=== PATIENT | female | born 1970 | race Caucasian/White ===

== ENCOUNTER 2024-11-24 07:28 | Emergency (ER) | payer OTHER, SELFPAY ==
[2024-11-24 07:31] VITALS: BP 169/92
[2024-11-24 08:23] LABS: % Basophils 0.5 % (0-2); % Eosinophils 2.4 % (0-6); % Immature Granulocytes 0.2 % (0-0.5); % Lymphocytes 13.8 % (20.5-51.1); % Monocytes 7.4 % (1.7-9.3); % Neutrophils 75.7 % (42.2-75.2); Absolute Eosinophils 0.2 10^3/uL (0-0.7); Absolute Lymphocytes 1.2 10^3/uL (1.2-3.4); Absolute Monocytes 0.6 10^3/uL (0.1-0.6); Absolute Neutrophils 6.6 10^3/uL (1.4-6.5); Hematocrit 39.7 % (37.0-47.0); Hemoglobin 13.4 g/dL (12.0-16.0); Mean Corp Hgb Conc. 33.8 g/dL (33.0-37.0); Mean Corpuscular Hgb 29.8 pg (27.0-31.0); Mean Corpuscular Volume 88.4 fL (81.0-99.0); Nucleated Red Blood Cells % 0 %; Red Blood Cell Count 4.49 10^6/uL (4.20-5.40); White Blood Cell Count 8.7 10^3/uL (4.8-10.8)
[2024-11-24 08:31] LABS: ALT (SGPT) 14 U/L (0-35); AST (SGOT) 20 U/L (14-36); Albumin 4.1 g/dl (3.5-5.0); Alkaline Phosphatase 60 U/L (38-126); Blood Urea Nitrogen 17 mg/dl (7-17); Calcium 10.5 mg/dl (8.4-10.2); Carbon Dioxide 26 mmol/L (22-30); Chloride 108 mmol/L (98-107); Glucose 104 mg/dl (70-99); Lipase 52 U/L (23-300); Potassium 4.5 mmol/L (3.5-5.1); Sodium 142 mmol/L (135-145); Total Bilirubin 0.4 mg/dl (0.2-1.3); Total Protein 6.9 g/dl (6.3-8.2); eGFR > 60.00
--- NOTE | 2024-11-24 08:42 | ED.GENMED ---
History of Present Illness
General
Chief Complaint: Abdominal Pain
Source: patient
Exam Limitations: none
Time Seen by Provider: 11/24/24 08:25
History of Present Illness
History of Present Illness:
53yoF with a history of a torn hip labrum currently on meloxicam and gabapentin presenting with her for evaluation of abdominal pain. Symptoms initially began about a month ago. She reports the pain in her epigastric region. It initially
felt like something exploded in her stomach. This was followed by salivation and nausea. She did not have this pain again up until 2 days ago. She has had 3 separate episodes of pain in the last few days with the last episode being this morning.
The pain is always located in her epigastric region and it feels like something pops. Throughout the past month, she has been experiencing bloating in her upper abdomen after eating or drinking anything. She also reports belching and constipation.
She takes milk of magnesia as needed. She denies any chest pain, fevers, diarrhea, dysuria. Previous abdominal surgeries include an appendectomy, oophorectomy, and tummy tuck.
Past History
Past History
ED Past Medical History: None
ED Past Surgical History: Gynecological (bilateral oophorectomy) and Other (breast reduction, tummy tuck, bilateral ear prosthetic hammer bones)
Social History
Tobacco: Smoker (occasionally)
Alcohol: Occasional
Personal:
Living: with family
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
Phy Exam
Physical Exam
Physical Exam:
Appears uncomfortable, non-toxic
General Physical Exam
General Presentation: well appearing
General age: appears stated age
General Skin: warm and dry
General Habitus: normal
General Mental: alert
ENT Exam
ENT Exam: normocephalic
Cardiovascular Exam
Cardiovascular Exam: regular rate/rhythm and no murmur
Pulmonary Exam
Pulmonary Exam: lungs clear, no respiratory distress, no rales, no crackles and no rhonchi
Gastrointestinal Exam
Gastrointestinal Exam: soft and other (+Tenderness in RUQ, epigastric, and LUQ regions. Upper abdomen mildly distended. No rebound or guarding. )
Neurological Exam
Neurological Exam: alert
Gagan Coma Scale
Eye Opening: Spontaneous
Verbal Response: Oriented
Motor Response: Obeys Commands
GCS Total Score: 15
Skin Exam
Skin Exam: normal color and warm/dry
Psychiatric Exam
Psychiatric Exam: normal mood/affect
Course
Orders/Labs/Results
Orders:
Orders
11/24/24 07:35
Electrocardiogram (*1) Urgent
Reason for Study: Abdominal Pain
EKG- Treatment ONCE
11/24/24 07:50
Complete Blood Count/With Diff Urgent
Comprehensive Metabolic Panel Urgent
Lipase Urgent
11/24/24 08:41
CT Abd/pel W Iv And Oral Contr Urgent
Comment:
Reason For Exam: upper abdominal pain
0.9% Sodium Chloride 1000 ml [Nss] 1,000 ml IV BOLUS
Famotidine [Pepcid] 20 mg IV NOW STA
Iohexol [Omnipaque] See Protocol PO NOW STA
Morphine Sulfate 4 mg IV NOW STA
Ondansetron Injectable [Zofran] 4 mg IV NOW STA
11/24/24 09:23
Troponin I Urgent
Abnormal Lab Results
11/24/24
07:50
MPV 10.7 H fL
(7.4-10.4)
Absolute Neuts (auto) 6.6 H 10^3/uL
(1.4-6.5)
Neutrophils % 75.7 H %
(42.2-75.2)
Lymphocytes % 13.8 L %
(20.5-51.1)
Chloride 108 H mmol/L
(98-107)
Glucose 104 H mg/dl
(70-99)
Calcium 10.5 H mg/dl
(8.4-10.2)
11/24/24 07:50
11/24/24 07:50
Vital Signs
Initial and Last Documented VS:
Initial Vital Signs
Temp Pulse Resp BP Pulse Ox
98.4 F 94 16 169/92 98
11/24/24 07:31 11/24/24 07:31 11/24/24 07:31 11/24/24 07:31 11/24/24 07:31
Last Documented Vital Signs
Temp Pulse Resp BP Pulse Ox
98.4 F 55 18 110/77 98
11/24/24 07:31 11/24/24 11:10 11/24/24 11:10 11/24/24 11:10 11/24/24 11:10
MDM/Problems Addressed
Differential Diagnosis Includes:
53yoF here with upper abd pain, bloating, and belching. Had an episode 1 month ago and symptoms recurred 2 days ago. +Intermittent vomiting. She is mildly hypertensive with otherwise normal vitals. She is non-toxic appearing. No signs of peritonitis
on abdominal exam. Differential diagnosis includes but is not limited to: gastritis, PUD, biliary colic, SBO, malignancy
Initial ED plan: Check abdominal labs, troponin/EKG, and CT abdomen with IV/PO contrast. IV Zofran, Pepcid, morphine, and fluid bolus for symptoms.
*EKG
Interpreted by ED Provider?: Yes
EKG Intrepretation Date: 11/24/24
Heart Rate: 77
Rate: normal
Rhythm: sinus
Brothers: normal axis
Interval: normal interval
QRS Pattern: poor R-wave progression
Ischemia: no ischemia
*Critical Care Note
Total Time (30-74mins, 75-104mins- exclusive of procedures): Not Applicable
Update Note
Update Note:
Labs overall unremarkable including normal white count, lipase, renal function, and LFTs. EKG shows normal sinus rhythm without ischemic changes and troponin within normal limits. CT abdomen is negative for acute findings. There is fatty atrophy
of the pancreas but no pancreatic mass. Unclear etiology of symptoms. Consider peptic ulcer disease given report of postprandial pain. Prescriptions provided for Protonix, Carafate, and Zofran. Advised follow-up with PCP and GI. ED return
precautions discussed. Patient in agreement with plan and was discharged in stable condition.
ED Attending Note
-
Portions of this chart may have been created with voice recognition software.� Occasional wrong word or��sound alike� substitutions may have occurred due to the inherent limitations of voice recognition software.
Discharge Plan
Departure
Patient Disposition: Home (Routine Discharge)
Date of Disposition: 11/24/24
Time of Disposition: 12:53
Patient with high blood pressure during this ER visit?: No
Discharge Problem:
Epigastric pain, Nausea and vomiting
Instructions: Abdominal Pain
Prescriptions:
New
pantoprazole [Protonix] 40 mg tablet,delayed release (DR/EC)
40 mg PO DAILY Qty: 30 0RF
sucralfate [Carafate] 100 mg/mL suspension
10 ml PO ACHS Qty: 400 0RF
ondansetron 4 mg tablet,disintegrating
4 mg PO Q6H PRN (Reason: nausea and vomiting) Qty: 20 0RF
No Action
cholecalciferol (vitamin D3) [Vitamin D3] 400 UNITS tablet
400 units PO DAILY
omega-3 fatty acids-fish oil 1 EACH capsule
1 ea PO DAILY
magnesium oxide 500 MG capsule
500 mg PO DAILY
vit [id number] D3-calc cit-Zn 1 EACH capsule
1 cap PO DAILY
multivitamin [One Daily Multivitamin] 1 EACH powder in packet
1 ea PO DAILY
hydrocodone-acetaminophen 1 TABLET tablet
1 - 2 tab PO Q4HPRN PRN (Reason: moderate to severe pain) Qty: 15 0RF
Referrals:
Omer Kennedy MD [Family Provider] -
Marcos Hammer MD [Active] -
Activity Restrictions/Additional Instructions:
Take pantoprazole and Carafate as prescribed. You may also take famotidine (Pepcid) 20 mg twice a day as needed. Take Zofran as needed for nausea.
Please call today to schedule a follow-up appointment with your family doctor and gastroenterology. Return to the ER with any new or worsening symptoms.
Interventions
Interventions:
*Risk Screen - Suicide Last Done: 11/24/24 09:25
*General Assessment Last Done: 11/24/24 09:25
*Neglect/Abuse Screening Last Done: 11/24/24 09:25
*ED- Fall Risk Assessment Last Done: 11/24/24 09:25
*ED COVID-19 Vaccine History Last Done: 11/24/24 09:25
*Nursing Disposition Last Done: 11/24/24 13:03
BR-Gzneyb-Vqvcoajpsb Assessment Last Done: 11/24/24 09:25
Discharge Date and Time
Discharge Date/Time: 11/24/24 13:04
Print Language: TAJIK
[2024-11-24 09:00] LABS: Mean Platelet Volume 10.7 fL (7.4-10.4); Platelet Count 227 10^3/uL (130-400)
[2024-11-24] MEDS: OMNIPAQUE 50 ML PO (09:16)
[2024-11-24] MEDS: PEPCID 20 MG IV (09:24)
[2024-11-24] MEDS: NSS 1000 IV (09:24)
[2024-11-24 09:25] VITALS: BMI 34.2
[2024-11-24] MEDS: MORPHINE SULFATE 4 MG IV (09:25)
[2024-11-24] MEDS: ZOFRAN 4 MG IV (09:25)
[2024-11-24 09:45] VITALS: BP 103/74
[2024-11-24 10:02] VITALS: BP 123/95
[2024-11-24 10:19] LABS: Troponin I < 0.012 ng/ml
[2024-11-24 11:10] VITALS: BP 110/77
== END 2024-11-24 13:04 | disposition home or self-care (01) ==
LOC: EMR 07:28
PROVIDERS: Emergency Medicine; Physician Assistant; EMERGENCY PHYSICIAN Emergency Medicine; FAMILY PHYSICIAN Internal Medicine
DX: R11.2 Nausea with vomiting, unspecified (principal); R10.13 Epigastric pain; R14.0 Abdominal distension (gaseous); K59.00 Constipation, unspecified; F17.200 Nicotine dependence, unspecified, uncomplicated; Z88.1 Allergy status to other antibiotic agents; Z88.2 Allergy status to sulfonamides
CPT/HCPCS: 99284; 96375 ×2; 96361 ×2; 96374; 74177; 80053; 83690; 84484; 85025; 93005; Q9967

== ENCOUNTER 2025-04-24 11:06 | Emergency (ER) | payer OTHER, SELFPAY ==
[2025-04-24 11:16] VITALS: BP 107/89
[2025-04-24 12:08] LABS: Hematocrit 37.9 % (37.0-47.0); Hemoglobin 12.4 g/dL (12.0-16.0); Mean Corp Hgb Conc. 32.7 g/dL (33.0-37.0); Mean Corpuscular Volume 91.5 fL (81.0-99.0); Nucleated Red Blood Cells % 0 %; Platelet Count 204 10^3/uL (130-400); Red Cell Dist. Width 13.3 % (11.5-14.5)
[2025-04-24 12:18] VITALS: BMI 33.9
[2025-04-24 12:28] LABS: ALT (SGPT) 17 U/L (0-35); AST (SGOT) 22 U/L (14-36); Albumin 4.1 g/dl (3.5-5.0); Alkaline Phosphatase 60 U/L (38-126); Blood Urea Nitrogen 20 mg/dl (7-17); Calcium 9.5 mg/dl (8.4-10.2); Carbon Dioxide 29 mmol/L (22-30); Chloride 109 mmol/L (98-107); Estimated Creatinine Clearance 79 ml/min; Glucose 99 mg/dl (70-99); Lipase 53 U/L (23-300); Potassium 4.6 mmol/L (3.5-5.1); Sodium 140 mmol/L (135-145); Total Protein 6.7 g/dl (6.3-8.2); eGFR > 60.00
--- NOTE | 2025-04-24 12:58 | ED.GENMED ---
History of Present Illness
General
Chief Complaint: Abdominal Pain
Source: patient, records and previous radiology exam
Exam Limitations: none
Time Seen by Provider: 04/24/25 11:54
Nursing documentation reviewed up to this point in time: agreed with
History of Present Illness
History of Present Illness:
54-year-old female presents with left lower abdominal pain onset a few days ago she has been constipated with occasional diarrhea, had a hip replacement 7 weeks ago on the right for Dr. Ibarra, she had appendectomy she has had both ovaries removed
said a TIA related to stress, has had a lot of stress in her life related to multiple issues, was very anxious last night possibly trouble speaking last night been compliant with her meds as prescribed
Past History
Past History
ED Past Surgical History: Gynecological (bilateral oophorectomy) and Orthopedic
Social History
Tobacco: Smoker (occasionally)
Alcohol: Occasional
Drug: None
Personal:
Living: with family
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
Review of Systems
Review of Systems
All Other Systems: Not applicable
Constitutional: Denies fever or fatigue
Cardiac: Denies chest pain
ABD/GI: Reports abdominal pain, diarrhea and constipated
: Denies dysuria
Musculoskeletal: Reports back pain
Neurological: Reports other (Slurred speech)
Psychiatric: Reports anxiety
Phy Exam
Physical Exam
Physical Exam:
Physical Exam
General: Anxious consolable cooperative 54 female
Neck: No jaundice
Heart: s1/s2 regular rate and rhythm, no murmur. equal radial pulses.
Lungs: no acute respiratory distress. clear bilaterally
Abdomen: Tender in the left lower abdomen
Neuro: alert and oriented. no focal neurological deficits
Skin: no rash
Psychiatric: well kept. interactive and cooperative
Extremities: no edema.
Course
Orders/Labs/Results
Orders:
Orders
04/24/25 11:53
IV Insert/Care/Rem.- Treatment PRN
04/24/25 11:59
Complete Blood Count/With Diff Urgent
Comprehensive Metabolic Panel Urgent
Lipase Urgent
Urinalysis Reflex To Culture Urgent
Date Specimen was Collected: 04/24/25
Time Specimen was Collected: 11:53
04/24/25 12:51
CT Head W/o Iv Contrast Urgent
Comment:
Reason For Exam: slurred speach
HYDROmorphone [Dilaudid] 1 mg IV NOW STA
Ondansetron Injectable [Zofran] 4 mg IV NOW STA
US Periph Venous LOWER Ext LT Urgent
Comment:
Reason For Exam: swelling
04/24/25 12:52
CT Abd/Pel (IV only)-DH only Urgent
Comment:
Reason For Exam: llq pain tics
04/24/25 13:07
Electrocardiogram (*1) Urgent
Reason for Study: Abdominal Pain
EKG- Treatment ONCE
04/24/25 15:56
Ketorolac [Toradol] 30 mg IV NOW STA
04/24/25 16:03
diazePAM [Valium Injection] 5 mg IV NOW STA
Abnormal Lab Results
04/24/25
11:59
RBC 4.14 L 10^6/uL
(4.20-5.40)
MCHC 32.7 L g/dL
(33.0-37.0)
Lymphocytes % 19.0 L %
(20.5-51.1)
Chloride 109 H mmol/L
(98-107)
BUN 20 H mg/dl
(7-17)
04/24/25 11:59
04/24/25 11:59
Vital Signs
Initial and Last Documented VS:
Initial Vital Signs
Temp Pulse Resp BP Pulse Ox
98.5 F 82 18 107/89 98
04/24/25 11:16 04/24/25 11:16 04/24/25 11:16 04/24/25 11:16 04/24/25 11:16
Last Documented Vital Signs
Temp Pulse Resp BP Pulse Ox
98.5 F 74 16 108/70 96
04/24/25 11:16 04/24/25 16:30 04/24/25 16:30 04/24/25 16:00 04/24/25 16:30
MDM/Problems Addressed
Differential Diagnosis Includes:
Diverticulitis constipation intermittent obstruction radiculopathy TIA anxiety
MDM/Problems Addressed:
Abdominal pain slurred speech
Chronic conditions affecting care:
Recent hip surgery on meds anxiety
Acute Exacerbation and/or Progression of Chronic Illness:
Recent hip surgery on meds with anxiety
*Radiology
Radiology exam reviewed: radiology read reviewed
*Pulse Oximetry
SaO2: 98
Oxygen Mode of Delivery: Room air
Patient hypoxic: no
*Room Designer Interpretation
Rate: normal
Interpretation: normal
Heart Rate: 78
Rhythm: sinus
*Critical Care Note
Total Time (30-74mins, 75-104mins- exclusive of procedures): Not Applicable
Update Note
Update Note:
4 PM update images noted reports noted reviewed with patient and spouse we will try to get her comfortable we will try Toradol and Valium
5 PM patient feeling better Long conversation with patient suspect this is radicular pain she has an appointment with Rubio in few weeks meantime we will try Valium Lidoderm patch
ED Attending Note
-
Portions of this chart may have been created with voice recognition software.� Occasional wrong word or��sound alike� substitutions may have occurred due to the inherent limitations of voice recognition software.
Discharge Plan
Departure
Patient Disposition: Home (Routine Discharge)
Date of Disposition: 04/24/25
Time of Disposition: 16:50
Patient with high blood pressure during this ER visit?: No
Condition: Good
Discharge Problem:
Back pain, Abdominal pain
Instructions: Low back pain in adults, Active Range of Motion Exercises, Back and Hips, Back exercises, Abdominal Pain
Prescriptions:
New
lidocaine 5 % adhesive patch,medicated
1 patch topical DAILY Qty: 15 0RF
diazepam [Valium] 5 mg tablet
5 mg PO BID PRN (Reason: muscle spasm) Qty: 14 0RF
No Action
cholecalciferol (vitamin D3) [Vitamin D3] 400 UNITS tablet
400 units PO DAILY
omega-3 fatty acids-fish oil 1 EACH capsule
1 ea PO DAILY
magnesium oxide 500 MG capsule
500 mg PO DAILY
vit [id number] D3-calc cit-Zn 1 EACH capsule
1 cap PO DAILY
multivitamin [One Daily Multivitamin] 1 EACH powder in packet
1 ea PO DAILY
hydrocodone-acetaminophen 1 TABLET tablet
1 - 2 tab PO Q4HPRN PRN (Reason: moderate to severe pain) Qty: 15 0RF
pantoprazole [Protonix] 40 mg tablet,delayed release (DR/EC)
40 mg PO DAILY Qty: 30 0RF
sucralfate [Carafate] 100 mg/mL suspension
10 ml PO ACHS Qty: 400 0RF
ondansetron 4 mg tablet,disintegrating
4 mg PO Q6H PRN (Reason: nausea and vomiting) Qty: 20 0RF
Referrals:
Omer Kennedy MD [Family Provider, Internal Medicine]
Interventions
Interventions:
*Risk Screen - Suicide Last Done: 04/24/25 11:16
*General Assessment Last Done: 04/24/25 11:16
*Neglect/Abuse Screening Last Done: 04/24/25 11:16
OD-Effjoq-Eyzszdwiyw Assessment Last Done: 04/24/25 12:18
Discharge Date and Time
Print Language: NAURUAN
[2025-04-24] MEDS: ZOFRAN 4 MG IV (13:04)
[2025-04-24] MEDS: DILAUDID 1 MG IV (13:04)
[2025-04-24 13:21] LABS: Urine Character Clear (Clear)
[2025-04-24 15:57] VITALS: BP 104/53
[2025-04-24] MEDS: TORADOL 30 MG IV (15:59)
[2025-04-24 16:00] VITALS: BP 108/70
[2025-04-24] MEDS: VALIUM INJECTION 5 MG IV (16:12)
== END 2025-04-24 17:02 | disposition home or self-care (01) ==
LOC: EMR 11:06
PROVIDERS: EMERGENCY PHYSICIAN Emergency Medicine; FAMILY PHYSICIAN Internal Medicine
DX: M54.9 Dorsalgia, unspecified (principal); R10.9 Unspecified abdominal pain
CPT/HCPCS: 99284; 96374; 96375; 70450; 74177; 80053; 81003; 83690; 85025; 93005; 93971; Q9967

== ENCOUNTER 2025-08-25 15:51 | Emergency (ER) | payer OTHER, SELFPAY ==
[2025-08-25 19:01] VITALS: BP 134/85; BMI 30.1
--- NOTE | 2025-08-25 19:11 | ED.GENMED ---
History of Present Illness
General
Chief Complaint: DVT/Possible Blood Clot
Source: patient and spouse
Exam Limitations: none
Time Seen by Provider: 08/25/25 19:05
Nursing documentation reviewed up to this point in time: agreed with
History of Present Illness
History of Present Illness:
54-year-old female past medical history of remote history of stroke presenting to the emergency department today with concerns of left calf discomfort over the past few days. She to spoke with her primary care doctor about it who told her to go to
the ER for assessment of potential DVT. Denies history of blood clots, recent trauma surgery immobilization. Denies any chest pain or shortness of breath.
Past History
Past History
ED Past Medical History: None
ED Past Surgical History: Gynecological (bilateral oophorectomy) and Orthopedic
Social History
Tobacco: Smoker (occasionally)
Alcohol: Occasional
Drug: None
Personal:
Living: with family
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
Review of Systems
Review of Systems
Allergies reviewed?: Yes
All Other Systems: ROS reviewed and negative except as documented in HPI and ROS
Phy Exam
Physical Exam
Physical Exam:
GENERAL: Alert , in no apparent distress
EYE: pupils equal and reactive
NECK: Supple, no significant adenopathy.
ENT: o/p clr, mmm.
CARDIAC: Regular rate and rhythm .
LUNGS: Clear breath sounds bilaterally, no acute respiratory distress, no wheezes/rales/rhonchi
ABDOMEN: Soft, without focal tenderness, no r/g, no cvat
NEUROLOGICAL: Alert and oriented, no focal neuro deficits
SKIN: Warm and dry, skin intact.
MUSCULOSKELETAL: Vague swelling to the left calf with mild pain when squeezing the gastrocnemius otherwise normal distal pulses normal skin tone no redness or warmth good range of motion of the ankle and knee., well perfused.
PSYCH: Normal and appropriate interaction.
Course
Orders/Labs/Results
Orders:
Orders
08/25/25 16:05
Periph Venous Lwr Ext Left US [US Periph Venous LOWER Ext LT] Urgent
Comment: R/O DVT
Reason For Exam: swelling and pain
Vital Signs
Initial and Last Documented VS:
Initial Vital Signs
Temp Pulse Resp Pulse Ox
98.7 F 69 18 99
08/25/25 16:00 08/25/25 16:00 08/25/25 16:00 08/25/25 16:00
Last Documented Vital Signs
Temp Pulse Resp BP Pulse Ox
98.4 F 67 16 134/85 95
08/25/25 19:01 08/25/25 19:01 08/25/25 19:01 08/25/25 19:01 08/25/25 19:01
MDM/Problems Addressed
MDM/Problems Addressed:
54-year-old female presenting to the emergency department today with concerns of left calf discomfort. Reproducible to palpation. Ultrasound performed that did not show any evidence of DVT. No evidence of infection no signs of emergent pathology
advised for close outpatient follow-up. Return precautions given.
*Pulse Oximetry
SaO2: 95
Oxygen Mode of Delivery: Room air
Patient hypoxic: no (95)
*Critical Care Note
Total Time (30-74mins, 75-104mins- exclusive of procedures): Not Applicable
ED Attending Note
-
Portions of this chart may have been created with voice recognition software.� Occasional wrong word or��sound alike� substitutions may have occurred due to the inherent limitations of voice recognition software.
Discharge Plan
Departure
Patient Disposition: Home (Routine Discharge)
Date of Disposition: 08/25/25
Time of Disposition: 19:12
Patient with high blood pressure during this ER visit?: No
Condition: Good
Covid-19: Not Applicable
Discharge Problem:
Strain of calf muscle
Instructions: STRAINS
Prescriptions:
No Action
cholecalciferol (vitamin D3) [Vitamin D3] 400 UNITS tablet
400 units PO DAILY
omega-3 fatty acids-fish oil 1 EACH capsule
1 ea PO DAILY
magnesium oxide 500 MG capsule
500 mg PO DAILY
vit [id number] D3-calc cit-Zn 1 EACH capsule
1 cap PO DAILY
multivitamin [One Daily Multivitamin] 1 EACH powder in packet
1 ea PO DAILY
hydrocodone-acetaminophen 1 TABLET tablet
1 - 2 tab PO Q4HPRN PRN (Reason: moderate to severe pain) Qty: 15 0RF
pantoprazole [Protonix] 40 mg tablet,delayed release (DR/EC)
40 mg PO DAILY Qty: 30 0RF
sucralfate [Carafate] 100 mg/mL suspension
10 ml PO ACHS Qty: 400 0RF
ondansetron 4 mg tablet,disintegrating
4 mg PO Q6H PRN (Reason: nausea and vomiting) Qty: 20 0RF
lidocaine 5 % adhesive patch,medicated
1 patch topical DAILY Qty: 15 0RF
diazepam [Valium] 5 mg tablet
5 mg PO BID PRN (Reason: muscle spasm) Qty: 14 0RF
Activity Restrictions/Additional Instructions:
You came to the emergency department today with concerns of Discomfort. Here your ultrasound without evidence of blood clot. Please follow closely as an outpatient. Return for any worsening, new or concerning symptoms.
Interventions
Interventions:
*Risk Screen - Suicide Last Done: 08/25/25 16:00
*General Assessment Last Done: 08/25/25 19:01
*Neglect/Abuse Screening Last Done: 08/25/25 19:01
*ED COVID-19 Vaccine History Last Done: 08/25/25 19:01
*ED Influenza Vaccine History Last Done: 08/25/25 19:01
ED- Cardiac Assessment Last Done: 08/25/25 18:20
ED- Pulmonary Assessment Last Done: 08/25/25 18:20
ED-Peripheral Vascular Assessment Last Done: 08/25/25 18:20
ED-Skin Assessment Last Done: 08/25/25 18:20
Discharge Date and Time
Print Language: MALTESE
== END 2025-08-25 19:27 | disposition home or self-care (01) ==
LOC: EMR 15:51
PROVIDERS: EMERGENCY PHYSICIAN Emergency Medicine; FAMILY PHYSICIAN Internal Medicine
DX: S86.912A Strain of unspecified muscle(s) and tendon(s) at lower leg level, left leg, initial encounter (principal); X58.XXXA Exposure to other specified factors, initial encounter; F17.200 Nicotine dependence, unspecified, uncomplicated; Z86.73 Personal history of transient ischemic attack (TIA), and cerebral infarction without residual deficits; Z90.722 Acquired absence of ovaries, bilateral
CPT/HCPCS: 99284; 93971

== ENCOUNTER 2025-08-27 18:04 | Emergency (ER) | payer OTHER, SELFPAY ==
[2025-08-27 18:15] VITALS: BP 147/102
--- NOTE | 2025-08-27 20:10 | ED.SKININJ ---
HPI-Injury
General
Chief Complaint: Skin Surface Trauma
Source: patient
Exam Limitations: none
Time Seen by Provider: 08/27/25 19:48
Nursing documentation reviewed up to this point in time: agreed with
History of Present Illness-Injury
Is this injury a work related problem?: No
Is pt an associate of [facility]?: No
Initial Injury comments:
Patient is emergency room for evaluation of crush injury to her right distal index finger. She states she closed a bifold closet door on her finger at home tonight. She sustained a laceration to the lateral aspect of the right distal index finger.
Fingernail is partially avulsed.
Past History
Past History
ED Past Medical History: None
ED Past Surgical History: Gynecological (bilateral oophorectomy) and Orthopedic
Social History
Tobacco: Smoker (occasionally)
Alcohol: Occasional
Drug: None
Personal:
Living: with family
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
Review of Systems
Review of Systems
Allergies reviewed?: Yes
All Other Systems: ROS reviewed and negative except as documented in HPI and ROS
Constitutional: Reports no symptoms
Musculoskeletal: Reports joint pain (Pain to right distal index finger)
Skin: Reports other (Laceration to right distal index finger)
Neurological: Reports no symptoms
Psychiatric: Reports no symptoms
Skin Exam
Laceration
Right Distal Second Finger:
Length in cm: 1.5
Orientation: diagonal
Type of Laceration: simple
Any active bleeding?: low grade venous oozing
Distal skin color and temperature: normal-warm & good color
Normal distal neurovascular exam: Yes
Range of motion: full
Phy Exam
General Physical Exam
General Presentation: well appearing and mild distress
General age: appears stated age
General Skin: warm and dry
General Habitus: normal
General Mental: alert
Musculoskeletal Exam
Musculoskeletal Exam: full ROM and neuro vasc intact
Skin Exam
Skin Exam: normal color, warm/dry and no rash
Psychiatric Exam
Psychiatric Exam: normal mood/affect
Course
Orders/Labs/Results
Orders:
Orders
08/27/25 18:20
CR Finger(s)/thumb Min 2 Vw Rt Urgent
Comment:
Reason For Exam: injury/pain
Indicate Which Finger:: Index Finger
08/27/25 20:09
Tetanus/Diphth/Acelpertussis [Adacel] 0.5 ml IM .ONCE ONE
Vital Signs
Initial and Last Documented VS:
Initial Vital Signs
Temp Pulse Resp BP Pulse Ox
98.1 F 93 18 147/102 95
08/27/25 18:15 08/27/25 18:15 08/27/25 18:15 08/27/25 18:15 08/27/25 18:15
Last Documented Vital Signs
Temp Pulse Resp BP Pulse Ox
98.1 F 93 18 147/102 95
08/27/25 18:15 08/27/25 18:15 08/27/25 18:15 08/27/25 18:15 08/27/25 18:15
Procedures
Laceration Closure
Right Distal Second Finger:
Status of Wound: clean
Description of Wound Edges: sharp
Preparation: cleaned with saline
Anesthesia: 1% Lidocaine and Digital-Regional
Revision/Debridement: routine- no revision (Partially avulsed right distal index finger nail. Nail was repositioned back under cuticle.)
Wound exploration: explored to base- no FB
Type of Closure: Dermabond-skin glue
*Pulse Oximetry
SaO2: 95
Oxygen Mode of Delivery: Room air
Patient hypoxic: no
*Critical Care Note
Total Time (30-74mins, 75-104mins- exclusive of procedures): Not Applicable
Update Note
Update Note:
Patient's emergency department for eval of right distal index finger laceration. She states she closed a bifold closet door on her finger. She sustained a laceration and a partial nail avulsion to her right distal index finger. Digital block
performed with lidocaine 1%. Nail was replaced under cuticle. Laceration was closed with Dermabond. Steri-Strips applied. She will be discharged home, follow-up with PCP.
ED Attending Note
-
Portions of this chart may have been created with voice recognition software.� Occasional wrong word or��sound alike� substitutions may have occurred due to the inherent limitations of voice recognition software.
Discharge Plan
Departure
Patient Disposition: Home (Routine Discharge)
Date of Disposition: 08/27/25
Time of Disposition: 20:09
Patient with high blood pressure during this ER visit?: No
Condition: Good
Covid-19: Not Applicable
Discharge Problem:
Finger laceration
Instructions: Laceration Repair With Glue (DC)
Prescriptions:
No Action
cholecalciferol (vitamin D3) [Vitamin D3] 400 UNITS tablet
400 units PO DAILY
omega-3 fatty acids-fish oil 1 EACH capsule
1 ea PO DAILY
magnesium oxide 500 MG capsule
500 mg PO DAILY
vit X23-FA-fas D3-calc cit-Zn 1 EACH capsule
1 cap PO DAILY
multivitamin [One Daily Multivitamin] 1 EACH powder in packet
1 ea PO DAILY
hydrocodone-acetaminophen 1 TABLET tablet
1 - 2 tab PO Q4HPRN PRN (Reason: moderate to severe pain) Qty: 15 0RF
pantoprazole [Protonix] 40 mg tablet,delayed release (DR/EC)
40 mg PO DAILY Qty: 30 0RF
sucralfate [Carafate] 100 mg/mL suspension
10 ml PO ACHS Qty: 400 0RF
ondansetron 4 mg tablet,disintegrating
4 mg PO Q6H PRN (Reason: nausea and vomiting) Qty: 20 0RF
lidocaine 5 % adhesive patch,medicated
1 patch topical DAILY Qty: 15 0RF
diazepam [Valium] 5 mg tablet
5 mg PO BID PRN (Reason: muscle spasm) Qty: 14 0RF
Activity Restrictions/Additional Instructions:
Keep wound dry for 5 days. Do not remove tape strips. Take ibuprofen 600 mg every 6-8 hours as needed for pain. Apply ice to your fingertip 15 to 20 minutes at a time 4-5 times a day for any swelling.
Interventions
Interventions:
*Risk Screen - Suicide Last Done: 08/27/25 18:15
*Neglect/Abuse Screening Last Done: 08/27/25 18:15
*ED COVID-19 Vaccine History Last Done: 08/27/25 18:15
*ED Influenza Vaccine History Last Done: 08/27/25 18:15
Discharge Date and Time
Print Language: [email or web address]
[2025-08-27] MEDS: ADACEL 0.5 ML IM (20:14)
== END 2025-08-27 20:33 | disposition home or self-care (01) ==
LOC: EMR 18:04
PROVIDERS: EMERGENCY PHYSICIAN Student in an Organized Health Care Education/Training Program; FAMILY PHYSICIAN Internal Medicine
DX: S61.310A Laceration without foreign body of right index finger with damage to nail, initial encounter (principal); W23.0XXA Caught, crushed, jammed, or pinched between moving objects, initial encounter; F17.200 Nicotine dependence, unspecified, uncomplicated; Z23 Encounter for immunization
CPT/HCPCS: 12001; 90471; 99283; 73140; 90715